=== PATIENT | female | born 1950 | race Caucasian/White ===

== ENCOUNTER → 2018-05-24 10:11 | Outpatient (CLI) | payer MEDICARE, OTHER, SELFPAY ==
--- NOTE | 2018-05-24 | DI.MG.S_ITS ---
BILATERAL DIGITAL SCREENING MAMMOGRAM 3D/2D WITH CAD: 05/24/2018 CLINICAL: Routine screening. Family history of breast cancer. Comparison is made to exams dated: 08/24/2016 mammogram, 11/23/2013 mammogram, and 11/22/2012 mammogram - [facility]. The tissue of both breasts is heterogeneously dense. This may lower the sensitivity of mammography. Current study was also evaluated with a Computer Aided Detection (CAD) system. There is an oval asymmetry in the right breast middle depth outer region seen on the craniocaudal view only. Finding is best noted on tomographic CC slice 17. There are bilateral vascular calcifications. No other significant masses, calcifications, or other findings are seen in either breast. IMPRESSION: INCOMPLETE: NEEDS ADDITIONAL IMAGING EVALUATION The oval asymmetry in the right breast is indeterminate. Additional views with possible ultrasound are recommended. This exam was interpreted at Station ID: [id number]. NOTE: For mammograms, a report in lay terms will be sent to the patient. Approximately 15% of breast malignancies will not be visualized mammographically. In the management of a palpable breast mass, a negative mammogram must not discourage biopsy of a clinically suspicious lesion. Electronically Signed By: Elie Shrestha M.D. ecl/:05/25/2018 06:29:50 letter sent: Additional Imaging Needed ACR BI-RADS Category 0: Incomplete [id number]
== END ==
PROVIDERS: PCP Family Medicine; Visit Provider Family Medicine
DX: Z12.31 Encounter for screening mammogram for malignant neoplasm of breast (principal); Z80.3 Family history of malignant neoplasm of breast
CPT/HCPCS: 77063; 77067

== ENCOUNTER 2018-05-30 09:46 | Day surgery (SDC) | payer MEDICARE, OTHER, SELFPAY ==
[2018-05-30 10:04] VITALS: BP 115/78; PULSE 91; RESP 16; TEMP 36.4; O2SAT 99; BMI 23.8
[2018-05-30] MEDS: SODIUM CHLORIDE 0.9% 1,000 ML 200 ML IV (10:25)
--- NOTE | 2018-05-30 10:35 | PM.HP.1 ---
History of Present Illness Date Patient Seen: 05/30/18 Time Patient Seen: 10:36 Chief complaint: [id number] SCREENING COLONOSCOPY Narrative: Patient is a woman who had a colonoscopy in the past about 8 years ago. She had a polyp removed. She is here for follow-up. No family history colon cancer. Patient History Medical History Healthy adult (Chronic) Family & Social History Social History: household members spouse Meds Home Medications Medication Instructions Recorded Confirmed Type aspirin [Aspir-81] 81 mg PO DAILY 05/30/18 05/30/18 History calcium carbonate-vitamin D3 1 tab PO DAILY 05/30/18 05/30/18 History [Calcium 600 + D(3)] Review of Systems Review of Systems All systems reviewed & are unremarkable except as noted in HPI and below Exam Vital Signs (past 8 hours): - 05/30/18 10:04 Temperature 97.5 F L Pulse Rate 91 H Respiratory Rate 16 Blood Pressure 115/78 Pulse Oximetry 99 Oxygen Delivery Method Room Air Narrative Exam Narrative: Operative no apparent distress. Eyes are nonicteric. Lungs are clear to auscultation without rales or rhonchi. Heart regular rate and rhythm without murmur gallop. No abdominal masses tenderness. Alert and orient x3. Assessment & Plan Plan: Assessment/Plan Narrative: I have discussed the procedure and the rationale with the patient including risks of bleeding, perforation which would necessitate a major operation, failure to find remove all lesions and the potential to tattoo. They appeared to understand and wished to proceed.
--- NOTE | 2018-05-30 10:41 | PM.PREOP ---
Pre-operative Note Interval Note Pre-op Check: Yes History & Physical exam performed today by Physician Changes: No ASA Class (for procedural sedation): I
[2018-05-30] MEDS: fentaNYL 250 MCG/5 ML INJ IV (10:43)
[2018-05-30] MEDS: MIDAZOLAM 5 MG/5 ML VIAL IV (10:45)
--- NOTE | 2018-05-30 11:27 | PM.OP.ENDO ---
Operative Date/Time/Diagnoses Date of procedure: 05/30/18 Time of procedure: 11:27 Pre-op diagnosis: Screening examination. Last exam 8 years ago. Post-op diagnosis: same (Very tortuous elongated colon) Procedure & Clinicians Study performed: Colonoscopy Same procedure as scheduled: Yes Indications: Screening Surgeon: Mathew Haley Procedure Notes SCOAP/Timeout: Performed Procedure in detail: The patient was placed in the left lateral decubitus position and underwent IV sedation directed by the surgeon consisting of fentanyl and Versed. Digital exam was remarkable for decreased sphincter tone but no masses. The scope was inserted and advanced through the rectum into the sigmoid, descending, transverse, and ascending colon. I navigated the colon with great difficulty having to reposition the patient, applied pressure, insert a stiffener in order to reach the cecum. The cecum was reached identified by the ileocecal valve and the appendiceal opening. The ileocecal valve was cannulated. The terminal ileum was normal in appearance. The scope was gradually brought out. No Polyps were found. The scope ultimately was brought into the rectum. I attempted to retroflex in the rectum. After multiple unsuccessful attempts I slowly brought the scope through the anal canal. It was normal in appearance. The scope was removed and the patient tolerated the procedure well Scope withdrawal time: 9 min Sedation minutes: 43 Findings: other findings (Tortuous elongated colon) Specimen(s): none sent Complications: none Recommendations: Colonscopy in 10 years (Polyp removed 8 years ago was hyperplastic.) Plan for aftercare: Would recommend repeat colonoscopy in 10 years with the assistance of anesthesia in order to provide deep sedation. Follow up: as needed Disposition: PACU
[2018-05-30 11:36] VITALS: BP 96/56; PULSE 67; RESP 17; TEMP 36.2; O2SAT 98
[2018-05-30 11:40] VITALS: BP 99/63; PULSE 72; RESP 17; O2SAT 98
[2018-05-30 11:45] VITALS: BP 99/60; PULSE 62; RESP 20; TEMP 36.4; O2SAT 99
== END 2018-05-30 11:50 | disposition home or self-care (01) ==
PROVIDERS: Specialist; PCP Family Medicine; Visit Provider Surgery
PROC: 0DJD8ZZ Inspection of Lower Intestinal Tract, Via Natural or Artificial Opening Endoscopic (ICD-10-PCS; CPT 45378; principal; 2018-05-30 10:45)
DX: Z12.11 Encounter for screening for malignant neoplasm of colon (principal); Z86.010 Personal history of colon polyps
CPT/HCPCS: G0105; 99152; 99153; J2250; J3010

== ENCOUNTER → 2018-12-18 08:27 | Outpatient (CLI) | payer MEDICARE, OTHER, SELFPAY ==
--- NOTE | 2018-12-18 | DI.MG.S_ITS ---
UNILATERAL RIGHT DIGITAL DIAGNOSTIC MAMMOGRAM 3D/2D SHORT-TERM FOLLOW-UP: 12/18/2018 CLINICAL: Short term follow Right breast. Comparison is made to exams dated: 05/31/2018 mammogram - [facility], 05/24/2018 mammogram, and 08/24/2016 mammogram - [facility]. The tissue of right breast is heterogeneously dense. This may lower the sensitivity of mammography. There are stable grouped calcifications in the right breast at 11 o'clock posterior depth. No other significant masses or calcifications are seen in the breast. IMPRESSION: PROBABLY BENIGN The stable grouped calcifications in the right breast are probably benign. A follow-up right mammogram in 6 months is recommended to demonstrate stability. This exam was interpreted at Station ID: [id number]. NOTE: For mammograms, a report in lay terms will be sent to the patient. Approximately 15% of breast malignancies will not be visualized mammographically. In the management of a palpable breast mass, a negative mammogram must not discourage biopsy of a clinically suspicious lesion. SUMMARY: The patient will be due for her bilateral mammogram at this time. Electronically Signed By: Aga sanchez/:12/18/2018 09:14:52 letter sent: Followup Recommended ACR BI-RADS Category 3: Probably benign [id number]
== END ==
PROVIDERS: PCP Family Medicine; Visit Provider Family Medicine
DX: R92.1 Mammographic calcification found on diagnostic imaging of breast (principal)
CPT/HCPCS: 77065; G0279